=== PATIENT | male | born 1945 | race Caucasian/White ===

== ENCOUNTER 2021-01-02 14:28 | Outpatient (RCR) | payer MEDICARE, OTHER, SELFPAY ==
[2021-01-02] MEDS: COVID-19 VACC, MRNA(PFIZER)/PF 30 MCG/0.3 ML SYRINGE IM (17:36)
[2021-01-23] MEDS: COVID-19 VACC, MRNA(PFIZER)/PF 30 MCG/0.3 ML SYRINGE IM (17:05)
== END 2021-03-31 23:59 ==
LOC: IMMUN 14:28
PROVIDERS: PCP Family Medicine; Visit Provider Family Medicine
DX: Z23 Encounter for immunization (principal)
CPT/HCPCS: 0001A; 0002A; 91300